=== PATIENT | male | born 1965 | race Caucasian/White ===

== ENCOUNTER 2016-07-29 03:54 | Emergency (ER) | payer MEDICAID ==
[2016-07-29] MEDS ORDERED: Azithromycin 250 MG Tab ONE (04:10)
[2016-07-29 04:11] VITALS: BP 124/85
--- NOTE | 2016-07-29 04:53 | EDM.PDOC ---
ED HPI GENERAL MEDICAL PROBLEM - General Chief Complaint: General Stated Complaint: dizziness Time Seen by Provider: 07/29/16 04:27 Source of Information: Reports: Patient History Limitations: Reports: No limitations - History of Present Illness INITIAL COMMENTS - FREE TEXT/NARRATIVE: This is a 51yo M here in the ER due to an episode of dizziness that lasted 4-8 minutes per the patient. He got up around 3 am to go to the bathroom and felt dizzy. This has not happened before to him. He did not fall or have any loc. Patient states he has been sick for about 3 days with cough and nasal congestion but denies any chest pain, no sob, no prior episodes of dizziness, no fever or chills, no other symptoms, no weakness. Patient has a PMH of asthma and is on no medications. Patient is alert and oriented without current dizziness. He does say that his mouth is dry. Onset: sudden Onset Date: 07/29/16 Onset Time: 03:00 Duration: Minutes:, Resolved prior to arrival Location: Reports: head Severity: mild Improves with: Reports: None Worsens with: Reports: None Associated Symptoms: Reports: denies other symptoms - Related Data Allergies Allergy/AdvReac Type Severity Reaction Status Date / Time No Known Allergies Allergy Verified 07/29/16 04:08 Home Meds: Home Meds Albuterol [Ventolin HFA] 2 puff INH Q6H PRN 07/29/16 [History] Past Medical History - Past Health History Medical/Surgical History: Denies Medical/Surgical History HEENT History: Reports: Impaired vision Respiratory History: Reports: Asthma Musculoskeletal History: Reports: Fracture, Other (see below) Other Musculoskeletal History: L wrist Fx Psychiatric History: Reports: Anxiety, Depression - Infectious Disease History Infectious Disease History: Reports: Chicken pox Social & Family History - Family History Family Medical History: Noncontributory - Tobacco Use Smoking Status *Q: Never Smoker Second Hand Smoke Exposure: No - Caffeine Use Caffeine Use: Reports: Energy drinks - Recreational Drug Use Recreational Drug Use: No ED ROS GENERAL - Review of Systems Review Of Systems: ROS reveals no pertinent complaints other than HPI. ED EXAM, GENERAL - Physical Exam Exam: See Below Exam Limited By: No limitations General Appearance: alert, WD/WN, no apparent distress Eye Exam: bilateral eye: EOMI, PERRL Ears: normal external exam Ear Exam: bilateral ear: canal normal, TM normal Nose: normal inspection, normal mucosa, no blood Throat/Mouth: Normal inspection, Normal lips, Normal teeth, Normal gums, Normal oropharynx, Normal voice, No airway compromise Head: atraumatic, normocephalic Neck: normal inspection, supple, non-tender, full range of motion Respiratory/Chest: no respiratory distress, normal breath sounds, rhonchi ( slight diffuse ronchi), wheezing (slight on right lung) Cardiovascular: normal peripheral pulses, regular rate, rhythm, no edema, no gallop, no JVD, no murmur, no rub GI/Abdominal: normal bowel sounds, soft, non tender Back Exam: normal inspection Extremities: normal inspection Neurological: alert, oriented, CN II-XII intact, normal cognition, normal gait, normal reflexes, no motor/sensory deficits Psychiatric: normal affect, normal mood Skin Exam: Warm, Dry, Intact, Normal color, No rash Course - Vital Signs Last Recorded V/S: Last Vital Signs Temp 36.8 C 07/29/16 04:11 Pulse 70 07/29/16 04:11 Resp 16 07/29/16 04:11 BP 124/85 07/29/16 04:11 Pulse Ox 98 07/29/16 04:11 Departure - Departure Time of Disposition: 04:55 Disposition: Home, Self-Care 01 Condition: good Clinical Impression: Dizziness Instructions: Acute Bronchitis, [id number], Azithromycin tablets Referrals: PCP,None [Primary Care Provider] - Forms: ED Department Discharge Additional Instructions: Begin taking prescribed Azithromycin today as directed: 2 tablets by mouth today , then 1 tablet by mouth daily until all pills are gone. Drink plenty of fluids and get plenty of rest. May alternate Tylenol and Ibuprofen as directed : 650mg Tylenol by mouth every 4 hours as needed for pain/aches/mild fever and 800mg Ibuprofen by mouth every 8 hours as needed for pain/aches/mild fever. Should symptoms continue or worsen, follow up in clinic for further evaluation. Call with any questions. - Problem List Review Problem List Initiated/Reviewed/Updated: Yes - Assessment/Plan Plan: Likely a brief episode of orthostatic hypotension. Discussed possible dehydration due to recent viral illness. Patient counseled on close monitoring of BP, fluid hydration, output, illness, fever and f/u if any further episodes. Discussed rtc or ER if symptoms return or worsening of symptoms. Counseled on no driving if dizzy and to f/u in clinic for a routine health examination and check up. Counseled on f/u in clinic within 1 week for recheck. Reasserted f/u if symptoms persist.
== END 2016-07-29 04:44 | disposition home or self-care (01) ==
LOC: LB.ED 03:54
DX: R42 Dizziness and giddiness (principal)
CPT/HCPCS: 99283; A9270

== ENCOUNTER 2021-10-12 22:26 | Emergency (ER) | payer MEDICAID ==
[2021-10-12 23:38] VITALS: BP 154/81; PULSE 100
== END 2021-10-13 00:05 | disposition home or self-care (01) ==
LOC: LB.ED 22:26
DX: I49.3 Ventricular premature depolarization (principal)
CPT/HCPCS: 36415; 80048; 84484; 93005; 93010; 99282; 99285-25

== ENCOUNTER 2022-10-25 21:34 | Emergency (ER) | payer MEDICAID ==
[2022-10-25] MEDS ORDERED: Doxycycline 100 MG Cap ONE (22:00)
[2022-10-25 22:38] VITALS: BP 158/92; PULSE 100
== END 2022-10-25 22:25 | disposition home or self-care (01) ==
LOC: LB.ED 21:34
DX: S30.861A Insect bite (nonvenomous) of abdominal wall, initial encounter (principal); W57.XXXA Bitten or stung by nonvenomous insect and other nonvenomous arthropods, initial encounter; J45.909 Unspecified asthma, uncomplicated; Z79.899 Other long term (current) drug therapy
CPT/HCPCS: 99281; A9270-GY